=== PATIENT | female | born 1960 | race Caucasian/White ===

== ENCOUNTER 2016-12-04 16:49 | Emergency (ER) | payer BC, OTHER ==
[2016-12-04] MEDS ORDERED: Lorazepam 1 MG TAB ONE (17:58)
== END 2016-12-04 18:44 | disposition left against medical advice (07) ==
LOC: ERS 16:49
DX: I10 Essential (primary) hypertension (principal); R07.9 Chest pain, unspecified
CPT/HCPCS: 93005